=== PATIENT | female | born 1960 | race Caucasian/White ===

== ENCOUNTER 2018-10-02 11:00 | Emergency (ER) | payer MEDICAID ==
[~2018-10-02] VITALS: Ht 152.4 cm; Wt 82.7 kg
[~2018-10-02 11:00] MED LIST: ALBU18HF2 INH; BUSP10TA11 PO; ESCI20TA29 PO; GABA-532 PO; GLIP5TAB13 PO; LORA-512 PO; LOSA25TA96 PO; MAGN500C16 PO; METF500T PO; MULT1TAB74 PO
[2018-10-02 11:14] VITALS: BP 111/73
[2018-10-02] MEDS ORDERED: KETO15CR2 TOP (12:33)
[2018-10-02] MEDS ORDERED: NYST1POW5 TOP (12:33)
== END 2018-10-02 12:42 | disposition home or self-care (01) ==
LOC: ER 11:00
DX: B37.2 Candidiasis of skin and nail (principal); Z88.0 Allergy status to penicillin; Z91.012 Allergy to eggs; Z79.84 Long term (current) use of oral hypoglycemic drugs; Z79.899 Other long term (current) drug therapy
CPT/HCPCS: 99283

== ENCOUNTER 2018-12-23 22:27 | Emergency (ER) | payer MEDICAID ==
[~2018-12-23] VITALS: Ht 152.4 cm; Wt 88.5 kg
[~2018-12-23 22:27] MED LIST changes: +KETO15CR2 TOP; +NYST1POW5 TOP
--- NOTE | 2018-12-23 23:03 | NUR ---
pt reports resuming chemotherapy yesterday after a break for a " a few months"for stage iv lung cancer. She reports an initial pain, left low lung that has since migrated to her back which is "like a spasm going off every
--- NOTE | 2018-12-23 23:05 | NUR ---
(continued) minute. Pt reports attempting to contact oncologist, but was met by answer service that provided a phone number which was the one pt had just called.
--- NOTE | 2018-12-23 23:14 | NUR ---
DISCUSSED PT'S WITNESSED BACK SPASMS WITH DR ELENA; NEW ORDER RECEIVED FOR VALIUM 10MG ORAL.
[2018-12-23] MEDS ORDERED: diazepam 5mg tablet PO ONE (23:15)
[2018-12-24] MEDS ORDERED: cyclobenzaprine 10mg tablet PO ONE (00:30)
[2018-12-24 02:12] VITALS: BP 148/85
== END 2018-12-24 02:02 | disposition home or self-care (01) ==
LOC: ER 22:28
DX: C34.90 Malignant neoplasm of unspecified part of unspecified bronchus or lung (principal); R07.89 Other chest pain; Z88.0 Allergy status to penicillin; Z91.012 Allergy to eggs; Z79.899 Other long term (current) drug therapy
CPT/HCPCS: 71045; 99283

== ENCOUNTER 2019-04-03 09:24 | Emergency (ER) | payer MEDICAID ==
[~2019-04-03] VITALS: Ht 152.4 cm; Wt 88.2 kg
[2019-04-03 09:31] VITALS: BP 130/85
[2019-04-03] MEDS ORDERED: DOXY100C43 PO (11:58)
== END 2019-04-03 12:27 | disposition home or self-care (01) ==
LOC: ER 09:24
DX: L02.31 Cutaneous abscess of buttock (principal); E78.00 Pure hypercholesterolemia, unspecified; E11.9 Type 2 diabetes mellitus without complications; F32.9 Major depressive disorder, single episode, unspecified; Z88.0 Allergy status to penicillin; Z79.899 Other long term (current) drug therapy; Z79.84 Long term (current) use of oral hypoglycemic drugs; Z91.012 Allergy to eggs
CPT/HCPCS: 99283

== ENCOUNTER 2020-02-12 08:20 | Day surgery (SDC) | payer MEDICAID ==
[~2020-02-12] VITALS: Ht 152.4 cm; Wt 81.0 kg
[~2020-02-12 08:20] MED LIST changes: +MULT-620 PO; -MULT1TAB74 PO
[2020-02-12] MEDS ORDERED: normal saline 1000ml 1,000 ML IV PRN (08:45)
[2020-02-12 09:06] VITALS: BP 138/76
[2020-02-12 09:31] LABS: BASOPHILS % (AUTO) 0.7 % (0-1); EOSINOPHILS # (AUTO) 0.1 X10'3 (0-0.9); EOSINOPHILS % (AUTO) 2.3 % (0-6); HEMATOCRIT 47.1 % (35.0-45.0); HEMOGLOBIN 16.3 g/dl (12.0-16.0); LYMPHOCYTES # (AUTO) 1.2 X10'3 (1.1-4.8); LYMPHOCYTES % (AUTO) 20.3 % (21-51); MEAN CORPUSCULAR HEMOGLOBIN 35.3 PG (27.0-31.0); MEAN CORPUSCULAR HGB CONC 34.6 g/dL (33.0-36.5); MEAN CORPUSCULAR VOLUME 102.2 FL (78-98); MEAN PLATELET VOLUME 5.9 FL (7.4-10.4); MONOCYTES # (AUTO) 0.6 X10'3 (0-0.9); MONOCYTES % (AUTO) 9.3 % (2-12); NEUTROPHILS % (AUTO) 67.4 % (42-75); PLATELET COUNT 234 X10'3 (140-440); RED CELL DISTRIBUTION WIDTH 13.3 % (11.5-14.5)
--- NOTE | 2020-02-12 10:30 | NUR ---
Dr. Madsen at bedside discussing POC with patient. Procedure cancelled at this time.
== END 2020-02-12 11:00 | disposition home or self-care (01) ==
LOC: SSTAY O 08:20
PROVIDERS: ATTEND Radiology Diagnostic Radiology
DX: N28.89 Other specified disorders of kidney and ureter (principal); Z53.8 Procedure and treatment not carried out for other reasons; E78.00 Pure hypercholesterolemia, unspecified; E11.9 Type 2 diabetes mellitus without complications; F32.9 Major depressive disorder, single episode, unspecified; Z87.440 Personal history of urinary (tract) infections; Z72.89 Other problems related to lifestyle; Z79.899 Other long term (current) drug therapy; Z88.0 Allergy status to penicillin; Z91.012 Allergy to eggs; Z85.42 Personal history of malignant neoplasm of other parts of uterus; Z11.59 Encounter for screening for other viral diseases
CPT/HCPCS: 36415; 82948; 85025; U0003

== ENCOUNTER 2020-10-02 08:10 | Emergency (ER) | payer MEDICAID ==
[~2020-10-02] VITALS: Ht 152.4 cm; Wt 77.2 kg
[~2020-10-02 08:10] MED LIST changes: -BUSP10TA11 PO; +CINN500C15 PO; +GARL1TAB2; -KETO15CR2 TOP; -LORA-512 PO; -MAGN500C16 PO; -METF500T PO; +MULT-1085 PO; -MULT-620 PO; -NYST1POW5 TOP
[2020-10-02] MEDS ORDERED: HYDR-3965 PO ×2 (08:40→11:30)
[2020-10-02] MEDS: diatr meglu/diatrizoate 30ml oral sol.-(3 dose) bottle PO SCH ×3 (08:45→10:17)
[2020-10-02 09:01] LABS: BASOPHILS % (AUTO) 0.3 % (0-1); EOSINOPHILS # (AUTO) 0.1 X10'3 (0-0.9); EOSINOPHILS % (AUTO) 1.2 % (0-6); HEMATOCRIT 44.6 % (35.0-45.0); HEMOGLOBIN 15.4 g/dl (12.0-16.0); LYMPHOCYTES # (AUTO) 0.8 X10'3 (1.1-4.8); LYMPHOCYTES % (AUTO) 13.2 % (21-51); MEAN CORPUSCULAR HEMOGLOBIN 38.8 PG (27.0-31.0); MEAN CORPUSCULAR HGB CONC 34.6 g/dL (33.0-36.5); MEAN CORPUSCULAR VOLUME 112.3 FL (78-98); MEAN PLATELET VOLUME 5.9 FL (7.4-10.4); MONOCYTES # (AUTO) 0.5 X10'3 (0-0.9); MONOCYTES % (AUTO) 8.8 % (2-12); NEUTROPHILS # (AUTO) 4.6 X10'3 (1.8-7.7); NEUTROPHILS % (AUTO) 76.5 % (42-75); PLATELET COUNT 138 X10'3 (140-440); RED BLOOD COUNT 3.97 X10'6 (4.20-5.60); RED CELL DISTRIBUTION WIDTH 13.1 % (11.5-14.5)
[2020-10-02 09:02] LABS: CLARITY,URINE SLIGHTLY CLOUDY (Clear); COLOR,URINE YELLOW (Yellow); GLUCOSE, URINE 100 mg/dl (Neg); KETONES,URINE NEGATIVE (Neg); LEUKOCYTE ESTERASE ,URINE NEGATIVE (Neg); NITRITES, URINE NEGATIVE (Neg); OCCULT BLOOD,URINE NEGATIVE (Neg); PROTEIN,URINE 30 mg/dl (Neg); UROBILINOGEN,URINE 0.2 E.U/dL (0.2-1.0)
[2020-10-02 09:03] LABS: UA COLLECTION TYPE CLN CATCH MIDSTREAM
[2020-10-02 09:11] LABS: HYALINE CASTS 0-3 /LPF (NEGATIVE); MUCUS STRANDS FEW /LPF (Neg); SQUAMOUS EPITHELIAL CELL,UR MANY /LPF (FEW)
[2020-10-02] MEDS ORDERED: IOHEXOL 12MG/ML oral solution 500 ML BOTTLE PO ONE (09:15)
[2020-10-02 09:18] LABS: PARTIAL THROMBOPLASTIN TIME 26 SECONDS (22-32)
[2020-10-02 09:23] LABS: ALANINE AMINOTRANSFERASE 40 U/L (12-78); ALBUMIN 3.5 G/DL (3.4-5.0); ALBUMIN/GLOBULIN RATIO 0.8 (1.1-1.5); ALKALINE PHOSPHATASE 105 IU/L (46-116); ANION GAP 6 (8-16); ASPARTATE AMINO TRANSFERASE 50 U/L (10-37); BILIRUBIN,TOTAL 0.4 MG/DL (0.1-1.0); BLOOD UREA NITROGEN 8 MG/DL (7-18); BUN/CREATININE RATIO 12.3 (6.6-38.0); CALCIUM 9.8 MG/DL (8.5-10.1); CHLORIDE 95 MMOL/L (99-107); CREATININE 0.65 MG/DL (0.40-0.90); GLUCOSE 216 MG/DL (70-104); LIPASE 301 U/L (73-393); MAGNESIUM 1.9 MG/DL (1.5-2.4); POTASSIUM 4.8 MMOL/L (3.5-5.1); SODIUM 130 MMOL/L (135-145); TOTAL CARBON DIOXIDE 28.8 MMOL/L (24-32); TOTAL PROTEIN 7.7 G/DL (6.4-8.2); eGFR > 90 ML/MIN
[2020-10-02 09:25] LABS: BACTERIA,URINE FEW /HPF (Neg); RBC,URINE 0-2 /HPF (0-2); WBC,URINE 0-4 /HPF (0-4)
[2020-10-02 09:28] LABS: PLATELET ESTIMATE DECREASED
[2020-10-02] MEDS ORDERED: iohexol 300mg/ml 100ml inj. ONE (09:55)
[2020-10-02] MEDS ORDERED: MESSAGE TO NURSING PO SCH (10:39)
[2020-10-02] MEDS ORDERED: HYDROcodone/acetaminophen 5mg/325mg tablet PO ONE (11:30)
[2020-10-02] MEDS ORDERED: NAPR-56 PO (11:30)
[2020-10-02] MEDS ORDERED: naproxen 500mg tablet PO ONE (11:30)
[2020-10-02 11:35] VITALS: BP 125/87
== END 2020-10-02 12:55 | disposition home or self-care (01) ==
LOC: ER 08:11
DX: R19.00 Intra-abdominal and pelvic swelling, mass and lump, unspecified site (principal); R10.11 Right upper quadrant pain; R11.2 Nausea with vomiting, unspecified; R07.81 Pleurodynia; E78.00 Pure hypercholesterolemia, unspecified; I10 Essential (primary) hypertension; E11.9 Type 2 diabetes mellitus without complications; F32.9 Major depressive disorder, single episode, unspecified; F17.200 Nicotine dependence, unspecified, uncomplicated; Z72.89 Other problems related to lifestyle; Z98.890 Other specified postprocedural states; Z88.0 Allergy status to penicillin; Z91.012 Allergy to eggs; Z79.899 Other long term (current) drug therapy
CPT/HCPCS: 36415; 74177; 80053; 81001; 83690; 83735; 84484; 85008; 85025; 85610; 85730; 99285; Q9963; Q9967